=== PATIENT | female | born 1950 | race Asian ===

== ENCOUNTER 2021-01-02 10:18 | Outpatient (REF) | payer MEDICAID, SELFPAY ==
--- NOTE | ~2021-01-02 | XR_ITS ---
EXAMINATION: BILATERAL SHOULDER AND THORACIC SPINE X-RAY CLINICAL INFORMATION: Bilateral shoulder lesions. Back pain. COMPARISON: None TECHNIQUE: 4 views of each shoulder and 2 views of the thoracic spine FINDINGS: Left shoulder: Bone alignment is normal. No fracture or dislocation is seen. There is a cyst seen in the greater tuberosity measuring 1.1 x 1.6 cm likely related to degenerative change. There is mild arthritis at the acromioclavicular and glenohumeral joints. Soft tissues are normal. Right shoulder: Bone alignment is normal. No fracture or dislocation is seen. There is a cyst in the greater tuberosity again likely related to degenerative change. The glenohumeral joint is normal. There is mild arthritis at the acromioclavicular joint. Soft tissues are unremarkable. Thoracic spine: There is mild curvature of the mid lumbar spine to the left. Bone alignment is otherwise normal. There is mild multilevel degenerative spondylosis. No fracture dislocation or bone lesion is seen. Disc spaces are normal. Paraspinal soft tissues are normal. XR/XR thoracic spine 2V IMPRESSION: Bilateral shoulders: Degenerative changes. Bilateral symmetric appearing cysts in the greater tuberosities likely related to degenerative change. No suspicious bone lesion. Thoracic spine: Mild degenerative changes of the thoracic spine.
--- NOTE | ~2021-01-02 | XR_ITS ---
EXAMINATION: BILATERAL SHOULDER AND THORACIC SPINE X-RAY CLINICAL INFORMATION: Bilateral shoulder lesions. Back pain. COMPARISON: None TECHNIQUE: 4 views of each shoulder and 2 views of the thoracic spine FINDINGS: Left shoulder: Bone alignment is normal. No fracture or dislocation is seen. There is a cyst seen in the greater tuberosity measuring 1.1 x 1.6 cm likely related to degenerative change. There is mild arthritis at the acromioclavicular and glenohumeral joints. Soft tissues are normal. Right shoulder: Bone alignment is normal. No fracture or dislocation is seen. There is a cyst in the greater tuberosity again likely related to degenerative change. The glenohumeral joint is normal. There is mild arthritis at the acromioclavicular joint. Soft tissues are unremarkable. Thoracic spine: There is mild curvature of the mid lumbar spine to the left. Bone alignment is otherwise normal. There is mild multilevel degenerative spondylosis. No fracture dislocation or bone lesion is seen. Disc spaces are normal. Paraspinal soft tissues are normal. XR/XR shoulder LT min 2V IMPRESSION: Bilateral shoulders: Degenerative changes. Bilateral symmetric appearing cysts in the greater tuberosities likely related to degenerative change. No suspicious bone lesion. Thoracic spine: Mild degenerative changes of the thoracic spine.
--- NOTE | ~2021-01-02 | XR_ITS ---
EXAMINATION: BILATERAL SHOULDER AND THORACIC SPINE X-RAY CLINICAL INFORMATION: Bilateral shoulder lesions. Back pain. COMPARISON: None TECHNIQUE: 4 views of each shoulder and 2 views of the thoracic spine FINDINGS: Left shoulder: Bone alignment is normal. No fracture or dislocation is seen. There is a cyst seen in the greater tuberosity measuring 1.1 x 1.6 cm likely related to degenerative change. There is mild arthritis at the acromioclavicular and glenohumeral joints. Soft tissues are normal. Right shoulder: Bone alignment is normal. No fracture or dislocation is seen. There is a cyst in the greater tuberosity again likely related to degenerative change. The glenohumeral joint is normal. There is mild arthritis at the acromioclavicular joint. Soft tissues are unremarkable. Thoracic spine: There is mild curvature of the mid lumbar spine to the left. Bone alignment is otherwise normal. There is mild multilevel degenerative spondylosis. No fracture dislocation or bone lesion is seen. Disc spaces are normal. Paraspinal soft tissues are normal. XR/XR shoulder RT min 2V IMPRESSION: Bilateral shoulders: Degenerative changes. Bilateral symmetric appearing cysts in the greater tuberosities likely related to degenerative change. No suspicious bone lesion. Thoracic spine: Mild degenerative changes of the thoracic spine.
== END 2021-01-02 10:19 | disposition home or self-care (01) ==
LOC: HO.XRAY 10:18
PROVIDERS: Absent Provider Nurse Practitioner; PCP Nurse Practitioner; Visit Provider Internal Medicine
DX: M54.9 Dorsalgia, unspecified (principal); M75.81 Other shoulder lesions, right shoulder; M75.82 Other shoulder lesions, left shoulder
CPT/HCPCS: 72070; 73030

== ENCOUNTER 2022-07-23 10:28 | Outpatient (REF) | payer MEDICAID, SELFPAY ==
--- NOTE | ~2022-07-23 | XR_ITS ---
EXAMINATION: XR KNEE, LEFT CLINICAL INFORMATION: Fall/trauma to left knee x 8 days COMPARISON: None available. TECHNIQUE: Four views of the left knee. FINDINGS: There is mild loss of medial and patellofemoral compartment joint space without bony erosive changes. No visible acute fracture, dislocation or subluxation seen. There is mild superior patellar and medial compartment spurring. No abnormal joint effusion. There are no loose bodies. XR/XR knee LT 3V IMPRESSION: Mild degenerative changes medial and patellofemoral compartment. No visible acute fracture, dislocation or subluxation seen.
== END 2022-07-23 10:29 | disposition home or self-care (01) ==
LOC: HO.XRAY 10:28
PROVIDERS: Absent Provider Registered Nurse; PCP Registered Nurse; Visit Provider Emergency Medicine
DX: M25.562 Pain in left knee (principal)
CPT/HCPCS: 73562

== ENCOUNTER 2022-10-15 13:34 | Outpatient (REF) | payer OTHER, SELFPAY ==
--- NOTE | ~2022-10-15 | XR_ITS ---
EXAMINATION: XR CHEST CLINICAL INFORMATION: Positive quantiferon chest. COMPARISON: None available. TECHNIQUE: 2 views of the chest were obtained. FINDINGS: No significant abnormality is noted involving the heart, lungs, mediastinum, bony thorax or soft tissues. XR/XR chest 2V IMPRESSION: No acute cardiopulmonary process. No evidence for active tuberculosis.
== END 2022-10-15 13:35 | disposition home or self-care (01) ==
LOC: HO.HMGCX 13:34
PROVIDERS: PCP Internal Medicine Geriatric Medicine; Visit Provider Internal Medicine Geriatric Medicine
DX: R76.12 Nonspecific reaction to cell mediated immunity measurement of gamma interferon antigen response without active tuberculosis (principal)
CPT/HCPCS: 71046

== ENCOUNTER 2022-10-27 12:50 | Outpatient (REF) | payer OTHER, SELFPAY ==
--- NOTE | ~2022-10-27 | MM_ITS ---
EXAMINATION: MM SCREENING DIGITAL BREAST TOMOSYNTHESIS, BILATERAL CLINICAL INFORMATION: Screening. Asymptomatic. The lifetime risk of breast cancer based on the Tyrer-Cuzick Model is 2%. COMPARISON: Mammography: This is a baseline mammogram. TECHNIQUE: Digital breast tomosynthesis is performed in both the craniocaudal and mediolateral oblique views along with computer-aided detection (CAD). Synthesized 2D images are generated from the tomosynthesis. FINDINGS: There are scattered areas of fibroglandular density (ACR BI-RADS breast composition Category b). There are no significant masses, abnormal calcifications, or other abnormalities. MM/MM tomosynthesis screening BI IMPRESSION: No mammographic evidence of malignancy. ASSESSMENT: BI-RADS BI-RADS 1 - Negative RECOMMENDATION: Routine annual mammography screening. 1 year F/U This examination should not preclude the clinical evaluation of a suspicious palpable abnormality. This patient's information was entered into a reminder system with a target due date for their next mammogram.
--- NOTE | ~2022-10-27 | MM_ITS ---
EXAMINATION: BONE DENSITOMETRY CLINICAL INDICATION: Menopause. COMPARISON: This is the patient's baseline examination. TECHNIQUE: Using a Feusd DXA System (software version: 13.1) manufactured by [employer], dual-energy x-ray absorptiometry was performed of the lumbar spine and left hip. The images are of good technical quality. Summary results are attached. FINDINGS: LEFT FEMUR, NECK: BMD 0.808 g/cm2, Z-score 0.4, T-score -1.7, osteopenia. LEFT FEMUR, TOTAL: BMD 0.903 g/cm2, Z-score 1.0, T-score -0.8, normal. AP SPINE L1-L4: BMD 0.744 g/cm2, Z-score -1.4, T-score -3.6, osteoporosis. IDENTIFIED RISK FACTORS: Menopause. HISTORY OF FRACTURE: None listed. MEDICATIONS: None listed. MM/XR DEXA axial skeleton IMPRESSION: 1. DIAGNOSIS: Osteoporosis based on the lowest T-score value of -3.6 in the lumbar spine applying World Health Organization criteria. 2. 10-YEAR FRACTURE RISK PREDICTION, FRAX: According to the guidelines, FRAX calculation should only be performed on patients in the osteopenia bone density category. Therefore, FRAX was not performed on this patient. 3. Treatment Recommendations: NOF guidelines recommend consideration for treatment in postmenopausal women and men age 50 and older presenting with the following: -A hip or vertebral (clinical or morphometric) fracture. -T-score less than or equal to -2.5 at the femoral neck or spine after appropriate evaluation to exclude secondary causes. -Low bone mass at the hip or spine and a 10-year fracture probability by FRAX of greater than or equal to 3% for hip fracture or greater than or equal to 20% for major osteoporotic fracture based on the [place] adapted WHO algorithm. 4. Other Recommendations: All treatment decisions require clinical judgment and consideration of individual patient factors, including patient preferences, comorbidities, previous drug use, risk factors not captured in the FRAX model (e.g. frailty, falls, vitamin D deficiency, increased bone turnover, interval significant decline in bone density) and possible under or overestimation of fracture risk by FRAX. Additional medical evaluation for secondary cause of low bone mineral density may be appropriate. FUTURE SCAN RECOMMENDATION: People with diagnosed cases of osteoporosis or at high risk for fracture should have regular bone mineral density tests. For patients eligible for Medicare, routine testing is allowed once every 2 years. The testing frequency can be increased to one year for patients who have rapidly progressing disease, those who are receiving or discontinuing medical therapy to restore bone mass, or have additional risk factors.
== END 2022-10-27 12:51 | disposition home or self-care (01) ==
LOC: HO.MAMMO 12:50
PROVIDERS: PCP Internal Medicine Geriatric Medicine; Visit Provider Internal Medicine Geriatric Medicine
DX: Z12.31 Encounter for screening mammogram for malignant neoplasm of breast (principal); Z13.820 Encounter for screening for osteoporosis; Z78.0 Asymptomatic menopausal state
CPT/HCPCS: 77063; 77067; 77080

== ENCOUNTER → 2022-10-27 13:15 | Outpatient (BNV) | payer OTHER, SELFPAY | PROVIDERS: PCP Internal Medicine Geriatric Medicine; Visit Provider Radiology Diagnostic Radiology | DX: Z12.31 Encounter for screening mammogram for malignant neoplasm of breast (principal) | CPT/HCPCS: 77063; 77067; 77080 ==

== ENCOUNTER 2023-12-21 | Outpatient (REF) | payer OTHER, SELFPAY | END 2023-12-21 00:01 | disposition home or self-care (01) | LOC: CF | PROVIDERS: Visit Provider Orthopaedic Surgery | DX: M25.511 Pain in right shoulder (principal) | CPT/HCPCS: 99202 ==

== ENCOUNTER 2023-12-21 14:44 | Outpatient (AMB) | payer OTHER, SELFPAY ==
--- NOTE | 2023-12-21 14:53 | A.OFFVIS_ITS ---
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 The patient states that her symptoms have gotten worse over the last 2 years. She states that she injured her shoulder approximately 2 years ago while lifting heavy object. Since that time she has had difficulty lifting her right hand above shoulder height. She has done physical therapy exercises which aggravated her pain. She has also tried anti-inflammatory medicines, Tylenol and topical creams which gave her minimal relief. She has failed the last 6 weeks of conservative treatment. Allergies vitamin b complex Allergy (Severe, Uncoded 12/21/23 14:59) Hives Medication List - Last Reconciled 12/21/23 by Janay Duque RN calcium acetate 667 mg PO TID rosuvastatin 5 mg PO DAILY Physical Exam Const Other: Well-nourished well-developed very friendly female awake alert and oriented x3 in no acute distress Extrem Other: Bilateral upperextremity examination shows good capillary refill, no skin lesions noted, normal sensation light touch Right shoulder examination shows decreased range of motion when compared to her left shoulder, 3/5 strength with supraspinatus testing, positive impingement signs, no instability Results Reviewed Results Reviewed: X-rays of the patient's right shoulder show severe acromioclavicular joint narrowing, a type 2 acromion, no acute bony abnormalities Assessment & Plan Assessment & Plan (1) Right shoulder pain: Code(s): M25.511 - Pain in right shoulder Category: Medical Plan Ms. Acosta presents with progressively worsening right shoulder pain and weakness which has worsened over the last 2 years most likely due to a full-thickness rotator cuff tear. She has failed the last 6 weeks of conservative treatment. Thus, I will send her for an MRI of her right shoulder to further evaluate the status of her rotator cuff tendons. She will continue with her range motion exercises in the meantime. I did give her a prescription for meloxicam to help with her discomfort. Feel free to call me at any time should questions regarding her orthopedic management arise. Thank you very much for asking me to see this very friendly patient. I spent 22 minutes in reviewing the patient's records and imaging studies, se eing the patient and documenting in the medical record. Orders: Orders XR shoulder RT min 2V 12/21/23 M25.511 - Pain in right shoulder MR shoulder RT wo con Today M25.511 - Pain in right shoulder Referrals Pain Management Referral M54.50 - Low back pain, unspecified Medications: New meloxicam 15 mg PO DAILY PRN 30 tabs 3RF pain Coding Level of Care Code New Pt Level 3 (78783) Complex EM visit Add On G2211 Diagnoses Right shoulder pain M25.511
== END 2023-12-21 15:43 | disposition home or self-care (01) ==
PROVIDERS: PCP Internal Medicine Geriatric Medicine; Visit Provider Orthopaedic Surgery
DX: M25.511 Pain in right shoulder (principal)
CPT/HCPCS: 99203

== ENCOUNTER 2024-02-10 14:32 | Outpatient (REF) | payer OTHER, SELFPAY ==
--- NOTE | ~2024-02-10 | MR_ITS ---
EXAMINATION: MR SHOULDER WITHOUT CONTRAST, RIGHT CLINICAL INFORMATION: Pain in right shoulder COMPARISON: X-rays of the right shoulder 01/02/2021 TECHNIQUE: MRI of the shoulder without contrast was performed on a high-field scanner. FINDINGS: ROTATOR CUFF: Supraspinatus and infraspinatus: There is a complete full-thickness insertional tear throughout the supraspinatus tendon and possibly extending into the anterior infraspinatus tendon. The tear results in tendon retraction resulting in a tendon gap measuring 2.8 cm at transverse and 3 cm AP. There is mild atrophy and fatty infiltration of both muscles. Teres minor: Normal. Subscapularis: Some longitudinal increased signal within the distal 1 cm of the upper 3rd portion of the tendon along with heterogeneity throughout the remaining tendon. Findings compatible with tendinosis and minimal longitudinal interstitial partial tearing. No transverse defect or tendon retraction. Muscle normal. BICEPS: Proximal biceps tendon not well visualized likely torn and retracted distal to the bicipital groove CORACOACROMIAL ARCH: The undersurface of the acromion is curved with no subacromial spur. There is moderate osteoarthritis of the acromioclavicular joint. There is increased fluid in the subtle subdeltoid bursa communicating with the glenohumeral joint through the rotator cuff tear. LABRUM/CAPSULE: Normal. GLENOHUMERAL JOINT/MARROW: The humeral head is subluxed cephalad secondary to the aforementioned rotator cuff tear/tendon defect. The articular cartilage is normal. There is a mild joint effusion and synovitis. There are clustered enthesopathic cysts in the greater tuberosity and posterior tuberosity MR/MR shoulder RT wo con IMPRESSION: Large full-thickness insertional tear involving the entire supraspinatus tendon and possibly the anterior infraspinatus tendon. Mild atrophy and fatty infiltration of both muscles. Partial tearing of the distal subscapularis. tear of the biceps tendon with distal retraction. Moderate osteoarthritis of the acromioclavicular joint. Electronically signed by: Chapin Mcdaniel MD 02/22/2024 09:47 AM EST
== END 2024-02-10 14:33 | disposition home or self-care (01) ==
LOC: HO.MRI 14:32
PROVIDERS: PCP Registered Nurse; Visit Provider Orthopaedic Surgery
DX: M25.511 Pain in right shoulder (principal)
CPT/HCPCS: 73221

== ENCOUNTER 2024-08-17 09:11 | Outpatient (REF) | payer OTHER, SELFPAY ==
[2024-08-17 09:33] LABS: MANUAL DIFF FLAG NO
[2024-08-17 09:46] LABS: Basophils Absolute Auto 0.1 X10*3/uL (0.0-0.2); Basophils Percent Auto 0.6 % (0-2); Eosinophils Absolute Auto 0.3 X10*3/uL (0.0-0.4); Hematocrit 41.3 % (37.0-47.0); Hemoglobin 13.7 g/dl (12.0-16.0); Imm Gran Abs Auto 0.03 X10*3/uL (0.00-0.03); Imm Gran Pct Auto 0.4 % (0.0-0.4); Lymphocytes Absolute Auto 2.5 X10*3/uL (1.2-4.9); Lymphocytes Percent Auto 30.1 % (20-40); Mean Corpuscular HGB Conc 33.2 g/dl (31.0-35.0); Mean Corpuscular Hemoglobin 28.5 pg (27.0-33.0); Mean Platelet Volume 9.1 fL (9.4-12.3); Monocytes Absolute Auto 0.5 X10*3/uL (0.1-1.2); Monocytes Percent Auto 5.7 % (2-11); Neutrophils Absolute Auto 4.9 x10*3/uL (2.0-8.3); Neutrophils Percent Auto 60.2 % (45-73); Platelet Count 259 X10*3/uL (160-400); Red Cell Distribution Width 13.3 % (11.0-16.0); White Blood Count 8.2 X10*3/uL (4.8-10.8)
[2024-08-17 10:19] LABS: Estimated Average Glucose 212 mg/dL; Hemoglobin A1C 271.4793 umol/L; Total Hemoglobin (HGBA1C) 3621.8428 umol/L
[2024-08-17 10:34] LABS: Alanine Aminotransferase 18 U/L (0-31); Alkaline Phosphatase 117 U/L (39-117); Anion Gap 10 (12-20); Aspartate Amino Transferase 22 U/L (5-31); Bilirubin Total 0.4 mg/dL (0.0-1.0); Blood Urea Nitrogen 9 mg/dL (9-16); Calcium 9.3 mg/dL (8.4-10.2); Carbon Dioxide 26 mmol/L (22-29); Chloride 107 mmol/L (96-108); Cholesterol 166 mg/dL (<200); Estimated Glomerular Filt Rate > 60; Glucose Random 173 mg/dL (60-115); HDL Cholesterol 41 mg/dL (>40); LDL Cholesterol Calculated 96 mg/dL (<100); Potassium 4.2 mmol/L (3.3-5.1); Sodium 139 mmol/L (135-145); Total Protein 8.6 g/dL (6.5-8.0); Triglycerides 149 mg/dL (<150)
[2024-08-17 10:50] LABS: TSH reflex Free T4 4.64 uIU/mL (0.32-4.0); Vitamin B12 303 pg/mL (200-900); Vitamin D 25-OH Total 19.5 ng/mL (>30)
[2024-08-17 10:57] LABS: Creatinine Urine 51.74 mg/dL; Microalbumin Urine < 5.0 mg/L
[2024-08-17 11:45] LABS: Free T4 (Free Thyroxine) 0.88 ng/dL (0.71-1.85)
[2024-08-19 08:04] LABS: ~HepC Num1 0.28 S/CO (0.00-0.79); ~Hepatitis C Antibody Nonreactive (Nonreactive)
== END 2024-08-17 09:12 | disposition home or self-care (01) ==
LOC: HO.LAB 09:11
PROVIDERS: PCP Nurse Practitioner Primary Care; Visit Provider Nurse Practitioner Primary Care
DX: F32.A Depression, unspecified (principal); E11.69 Type 2 diabetes mellitus with other specified complication; E78.5 Hyperlipidemia, unspecified; R41.3 Other amnesia; Z11.59 Encounter for screening for other viral diseases; M81.0 Age-related osteoporosis without current pathological fracture
CPT/HCPCS: 36415; 80053; 80061; 82306; 82570; 82607; 83036; 84439; 84443; 85025; 86803

== ENCOUNTER 2024-09-26 15:54 | Outpatient (REF) | payer OTHER, SELFPAY ==
--- OUTSIDE RECORDS SUMMARY | 2024-09-26 15:58 | XMS_ITS | Encounter Summary ---
Author Organization [email or web address] Address [address] [place] [address] Care Team Providers Care Roller Painter Name Role Phone Yamileth Santacruz HEALTH AND WELLNESS MANAGER Primary Care Provider [phone] Encounter Details Date Type Department Care Team (Latest Contact Info) Description 09/26/2024 Travel Social History Tobacco Use Types Packs/Day Years Used Date Smoking Tobacco: Never Passive Smoke Exposure: Never Smokeless Tobacco: Never Alcohol Use Standard Drinks/Week Comments Never 0 (1 standard drink = 0.6 oz pur e alcohol) Depression Answer Date Recorded Patient Health Questionnaire-9 Score 22 07/17/2024 Patient Health Questionnaire-9 Score 22 07/17/2024 Last PHQ-9: Questionnaire Data Not on file 0 07/17/2024 Housing Stability Answer Date Recorded What is your housing situation today? I have josfea lezama 07/17/[address] you li ve. Do you have problems with any of the following? None of the above 07/17/2024 Food Insecurity Answer Date Recorded Within the past 12 months, y ou worried that your food would run out before you got money to buy more: Never True 07/17/2024 Within the past 12 months,th e food you bought just didn't last and you didn't have enough money to get more: Never True Transportation Answer Date Recorded In the past 12 months, has l ack of transportation kept you from medical appts, meetings, work or from getting things needed for daily living? No 07/17/2024 Utilities Answer Date Recorded In the past 12 months, has t he electric, gas, oil or water company threatened to shut off services in your home? No 07/17/2024 Depression Answer Date Recorded Patient Health Questionnaire-2 Score 5 07/17/2024 Internet Access Answer Date Recorded Internet Access Q1 Yes 07/17/2024 Internet Access Q2 Not on file 07/17/2024 Comments Unknown Sex and Gender Information Value Date Recorded Sex Assigned at Female 01/24/2022 10:37 AM EDT Legal Sex Female 10:37 AM EDT Gender Identity Female 01/24/2022 10:37 AM EDT Sexual Orientation Choose not to disclose 2021 10:37 AM EDT documented as of this encounter Plan of Treatment Upcoming Encounters Date Type Department Care Team (Late st Contact Info) Description 10/10/2024 3:30 PM EDT Clinical Support [facility] [address] [place] [phone] 12/06/2024 1:45 PM EDT Office Visit [facility] [address] [place] [phone] Radha Arguello MD [address] [place] [address] documented as of this encounter Visit Diagnoses Not on filedocumented in this encounter Additional Health Concerns Assessment Noted Time PHQ-9 Depression Total Score: 22 025 3:25 PM EDT documented as of this encounter Care Teams Roller Painter Relationship Specialty Start Date End Date Yamileth Santacruz FNP [address] [place] [address] PCP - General Family Medicine 11/19/21 documented as of this encounter
[2024-09-26 17:37] LABS: MANUAL DIFF FLAG NO
[2024-09-26 17:49] LABS: Hematocrit 41.0 % (37.0-47.0); Hemoglobin 13.3 g/dl (12.0-16.0); Imm Gran Abs Auto 0.03 X10*3/uL (0.00-0.03); Imm Gran Pct Auto 0.3 % (0.0-0.4); Lymphocytes Absolute Auto 2.8 X10*3/uL (1.2-4.9); Mean Corpuscular HGB Conc 32.4 g/dl (31.0-35.0); Mean Corpuscular Hemoglobin 28.4 pg (27.0-33.0); Mean Corpuscular Volume 87.6 fL (80.0-98.0); NRBC Abs Auto 0.000 X10*3/uL (0.0-0.012); NRBC Pct Auto 0.0 /100WBC (0.0-0.2); Platelet Count 303 X10*3/uL (160-400); Red Blood Count 4.68 X10*6/uL (4.20-5.50); White Blood Count 10.1 X10*3/uL (4.8-10.8)
[2024-09-26 17:59] LABS: Alanine Aminotransferase 15 U/L (0-31); Albumin Level 4.1 g/dL (3.5-5.0); Alkaline Phosphatase 99 U/L (39-117); Anion Gap 12 (12-20); Aspartate Amino Transferase 22 U/L (5-31); Blood Urea Nitrogen 10 mg/dL (9-16); Calcium 9.1 mg/dL (8.4-10.2); Carbon Dioxide 25 mmol/L (22-29); Chloride 103 mmol/L (96-108); Estimated Glomerular Filt Rate > 60; Potassium 4.1 mmol/L (3.3-5.1); Sodium 136 mmol/L (135-145); Total Protein 8.4 g/dL (6.5-8.0)
[2024-09-26 18:50] LABS: Folate 8.6 ng/mL (> or = 4.0); Vitamin B12 177 pg/mL (200-900)
[2024-09-26 19:16] LABS: Free T4 (Free Thyroxine) 0.86 ng/dL (0.71-1.85)
== END 2024-09-26 15:55 | disposition home or self-care (01) ==
LOC: HO.HHCL 15:54
PROVIDERS: PCP Nurse Practitioner Primary Care; Visit Provider Internal Medicine
DX: R68.89 Other general symptoms and signs (principal)
CPT/HCPCS: 36415; 80053; 82607; 82746; 84439; 84443; 85025; 86592

== ENCOUNTER 2024-11-06 14:27 | Outpatient (AMB) | payer OTHER, SELFPAY ==
[2024-11-06 14:41] VITALS: BP 116/78; PULSE 85; O2SAT 96; BMI 24.3
--- NOTE | 2024-11-06 14:41 | A.OFFVIS_ITS ---
Vital Signs 11/06/24 14:41 Height 4 ft 7.87 in Weight 108 lb BMI 24.3 BP 116/78 Blood Pressure Location Rt brachial Position Sitting Pulse 85 Pulse Source Pulse Oximeter Pulse Oximetry (%) 96 Oxygen Delivery Method Room Air Intake Visit Reasons: Osteoporosis Intake Note: New patient externally referred by PCP for Osteoporosis, last DEXA was on 10/27/2022 done at [facility] [place]. Steel Die Press Set Up Operator Required: Yes Steel Die Press Set Up Operator Language: [place] Steel Die Press Set Up Operator Services: Steel Die Press Set Up Operator Offered & Declined Steel Die Press Set Up Operator Name: Daughter Information Interpreted: non-clinical & clinical Accompanied by: Daughter Allergies vitamin b complex Allergy (Severe, Uncoded 11/06/24 14:46) Hives Medication List - Last Reconciled 11/06/24 by Gt Clifton MD blood sugar diagnostic ([employer]kinsTouch Ultra Test strips) As directed calcium acetate 667 mg PO TID cholecalciferol (vitamin D3) (Vitamin D3) 25 mcg PO QAM cyanocobalamin (vitamin B-12) 1,000 mcg PO DAILY empagliflozin (Jardiance) 10 mg PO DAILY lancets (OneTouch Delica Plus Lancet) As directed meloxicam 15 mg PO DAILY PRN rosuvastatin 10 mg PO QAM sertraline 25 mg PO DAILY HPI Comments Details: 74 YO Female is seen in consultation at the request of PCP for Osteoporosis. First diagnosed in 3-4 yrs .Not seen specialist before Not Received treatment in the past No history of pathologic fracture or ONJ. Has several servings of dietary calcium per day in the form of cheese , cabbage . Takes Calcium supplement 660 mg mg 1X/day in divided doses. Takes 2000 IU of VitaminD daily. since 07/2024 Denies ever using PPI, anticoagulant, antiepileptic or glucocorticoid medication. Not Does weight bearing exercise Fracture history: No Height loss: No BRUSHER HAND history: Menarche at age 18- Menoapause at age 44 - nl menses Denies history of Kidney stones: Denies family history of Osteoporosis or hip fracture. UTD on dental cleanings and sees dentist every 6 months. No planned upcoming dental work or extractions. No tabacco or heavy ETOH use DXA dated 10/27/22 :FINDINGS: LEFT FEMUR, NECK: BMD 0.808 g/cm2, Z-score 0.4, T-score -1.7, osteopenia. LEFT FEMUR, TOTAL: BMD 0.903 g/cm2, Z-score 1.0, T-score -0.8, normal. AP SPINE L1-L4: BMD 0.744 g/cm2, Z-score -1.4, T-score -3.6, osteoporosis. IDENTIFIED RISK FACTORS: Menopause. HISTORY OF FRACTURE: None listed. MEDICATIONS: None listed. MM/XR DEXA axial skeleton IMPRESSION: 1. DIAGNOSIS: Osteoporosis based on the lowest T-score value of -3.6 in the lumbar spine applying World Health Organization criteria. Labs: [facility] Medical History (Updated 11/06/24 @ 14:48 by Gt Clifton MD) Osteoporosis Surgical History (Updated 09/09/24 @ 11:29 by MANSOOR Thapa) Hx of bilateral cataract extraction Family History Father No problems noted. Mother No problems noted. Social History Alcohol intake: current Alcohol intake frequency: does not drink Patient Tobacco Use Status: Never used Tobacco Physical Exam Vital Signs: BMI result Body Mass Index 24.3 There are no Cushingoid features. Absence of blue sclera. Absence of kyphosis. Thyroid gland is of nl size and weighs 15 gms. There are no thyroid nodules palpated. Lungs CTA. Heart S1 S2 Reg R/R Abdominal exam benign. Muscle strength 5/5 . Examination of spine reveals absence of tenderness on palpation Assessment & Plan Assessment & Plan (1) Osteoporosis: Code(s): M81.0 - Age-related osteoporosis without current pathological fracture Category: Medical Plan: This is a 74-year-old female with a history of osteoporosis with partial secondary workup showing vitamin-D deficiency. We will complete secondary workup after giving 2000 IU of vitamin D3 and calcium 1200 mg by checking repeat 25 hydroxy vitamin-D, phosphorus, 24 hour urine for calcium and creatinine, urine immunofixation. We will repeat DEXA bone density of the hip and spine. After above, could consider therapy with anabolic therapy considering very low bone density in the spine and high risk for fracture Orders: Orders Creatinine, 24 Hr Group Today M81.0 - Age-related osteoporosis without current pathological fracture Immunofixation, Random Urine Today M81.0 - Age-related osteoporosis without current pathological fracture Phosphorus Today M81.0 - Age-related osteoporosis without current pathological fracture Vitamin D 25-OH Total Today M81.0 - Age-related osteoporosis without current pathological fracture Calcium, 24 Hr Ur Today M81.0 - Age-related osteoporosis without current pathological fracture XR DEXA axial skeleton Today M81.0 - Age-related osteoporosis without current pathological fracture Medications: New calcium acetate 667 mg PO TID 90 tabs 6RF cholecalciferol (vitamin D3) (Vitamin D3) 2,000 units PO QAM Coding Level of Care Code New Pt Level 4 (14213) Diagnoses Osteoporosis M81.0
--- OUTSIDE RECORDS SUMMARY | 2024-11-06 14:43 | XMS_ITS | Encounter Summary ---
Author Organization [employer] Address [address] [place] [address] Care Team Providers Care Freight Shipping Agent Name Role Phone Yamileth Santacruz NEON TECHNICIAN Primary Care Provider [phone] Encounter Details Date Type Department Care Team (Late st Contact Info) Description 09/30/2024 Orders Only [facility] [address], [place] [phone] Elba Best MD [address] [place], [place] [phone] Vitamin B12 deficiency (Primary Dx) Social History Tobacco Use Types Packs/Day Years [...] is your housing situation today? I have josefa lezama 07/17/[address] you [...] Care Team (Late st Contact Info) Description 11/13/2024 10:00 AM EDT Clinical Support [facility] [address] [place] [phone] 12/06/2024 1:45 PM EDT Office Visit [facility] [address] [place] [phone] Radha Arguello MD [address] [place] [phone] documented as of this encounter Visit Diagnoses Diagnosis Vitamin B12 deficiency- Primary Other B-complex deficiencies documented in this encounter Additional Health Concerns Assessment Noted Time PHQ-9 Depression Total Score: 22 025 3:25 PM EDT documented as of this encounter Care Teams Freight Shipping Agent Relationship Specialty Start Date End Date Yamileth Santacruz FNP [address] [place] [phone] PCP - General Family Medicine 11/19/21 documented as of this encounter
== END 2024-11-06 15:22 | disposition home or self-care (01) ==
LOC: HO.ENCR 14:28
PROVIDERS: PCP Nurse Practitioner Primary Care; Visit Provider Internal Medicine Endocrinology, Diabetes & Metabolism
DX: M81.0 Age-related osteoporosis without current pathological fracture (principal)
CPT/HCPCS: 99204

== ENCOUNTER → 2024-11-06 14:27 | Outpatient (BNVA) | payer OTHER, SELFPAY | PROVIDERS: PCP Nurse Practitioner Primary Care; Visit Provider Internal Medicine Endocrinology, Diabetes & Metabolism | DX: M81.0 Age-related osteoporosis without current pathological fracture (principal) | CPT/HCPCS: 99202 ==